=== PATIENT | male | born 1985 | race Caucasian/White ===

== ENCOUNTER 2023-09-21 10:06 | Emergency (ER) | payer SELFPAY ==
[~2023-09-21 10:06] MED LIST: Iopamidol 370 76% 100 ML VIAL ONE
[2023-09-21] MEDS ORDERED: Morphine 10 MG/ML VIAL ONE (10:42)
[2023-09-21] MEDS ORDERED: Ondansetron PF 4 MG/2 ML Vial ONE (10:42)
[2023-09-21] MEDS ORDERED: Sodium Chloride 0.9% 1,000 ML ONE ×2 (10:42→13:04)
[2023-09-21 10:48] LABS: #Basophils 0.1 thou/uL (0.0-0.2); #Lymphocytes 1.3 thou/uL (1.20-3.40); #Monocytes 0.5 thou/uL (0.11-0.59); #Neutrophils 7.6 thou/uL (1.40-6.50); %Basophils 0.9 % (0.0-1.0); %Eosinophils 0.4 % (0.0-10.0); %Monocytes 4.9 % (0.0-10.0); %Neutrophils 79.9 % (42.0-75.0); Hematocrit 47.3 % (42.0-52.0); Hemoglobin 15.2 g/dL (14.0-18.0); Mean Corpuscular HGB CONC 32.2 g/dL (32.0-36.0); Mean Corpuscular Hemoglobin 33.7 pg (27.0-31.0); Mean Corpuscular Volume 104.4 fl (78.0-98.0); Platelet Count 126 10x3/uL (130-400); RBC Distribution Width 13.2 % (11.5-14.5); Red Blood Cell (RBC) Count 4.53 mill/uL (4.70-6.10); White Blood Cell (WBC) Count 9.5 10x3/uL (4.8-10.8)
[2023-09-21 11:03] LABS: ALT (SGPT) 160 U/L (8-55); AST (SGOT) 216 U/L (5-34); Alkaline Phosphatase 123 U/L (40-110); Anion Gap 20 mmol/L (10-20); BUN (Urea Nitrogen) 12 mg/dL (8.9-20.6); Bilirubin, Total 2.6 mg/dL (0.2-1.2); Calc. Creatinine Clearance 0 mL/min (70-130); Calcium 9.8 mg/dL (7.8-10.44); Carbon Dioxide 19 mmol/L (22-29); Chloride 103 mmol/L (98-107); Estimated GFR 116; Globulin 3.2 g/dL (2.4-3.5); Glucose 107 mg/dL (70-105); Potassium 3.7 mmol/L (3.5-5.1); Protein, Total 8.2 g/dL (6.0-8.3); Sodium 138 mmol/L (136-145); Troponin I 0.013 ng/mL (< 0.028)
[2023-09-21 11:51] LABS: Lipase 3754 U/L (8-78)
[2023-09-21] MEDS ORDERED: Folic Acid 5 MG/ML MDV ONE (13:27)
[2023-09-21] MEDS ORDERED: Thiamine HCl 200 MG/2 ML VIAL ONE (13:27)
[2023-09-21] MEDS ORDERED: Dextrose 5 %-0.45 % NaCl 1,000 ML ONE (13:27)
[2023-09-21] MEDS ORDERED: Morphine 4 MG/ML VIAL ONE (13:28)
[2023-09-21] MEDS ORDERED: Multivit, Adult Inj 10 ML VIAL ONE (13:28)
== END 2023-09-21 14:38 | disposition short-term general hospital (02) ==
LOC: MADERS 10:06
DX: K85.10 Biliary acute pancreatitis without necrosis or infection (principal); I10 Essential (primary) hypertension; F17.210 Nicotine dependence, cigarettes, uncomplicated; Z79.899 Other long term (current) drug therapy
CPT/HCPCS: 74177; 80053; 83605; 83690; 84484; 85025; 96361; 96365; 96375; 96376; J2270; J2405; J3411; J7042; J7050; Q9967